=== PATIENT | male | born 1965 | race Caucasian/White ===

== ENCOUNTER → 2023-05-02 | Outpatient (CLI) | payer BC ==
[~2023-05-02] MED LIST: ASPI81TA85 PO; CLAR10TA13 PO; MOTRIN PO; MYLASS PO; NITROQUICK SL; PROT1TAB2 PO; VITA500046 PO; XANA0.25 PO
== END ==
LOC: M RAD 12:26
PROVIDERS: ATTEND Nurse Practitioner Adult Health
DX: R06.02 Shortness of breath (principal)

== ENCOUNTER → 2023-05-18 | Outpatient (CLI) | payer BC ==
[~2023-05-18] MED LIST changes: +METHACHOLINE KIT (6 VIAL.NEB PREMIX) INH ONE
== END ==
LOC: M CARPUL 10:00
PROVIDERS: ATTEND Nurse Practitioner Adult Health
DX: R06.02 Shortness of breath (principal)

== ENCOUNTER → 2023-05-31 | Outpatient (CLI) | payer BC ==
[~2023-05-31] MED LIST changes: -METHACHOLINE KIT (6 VIAL.NEB PREMIX) INH ONE
== END ==
LOC: M PLAIMG 09:20
PROVIDERS: ATTEND Nurse Practitioner Adult Health
DX: R91.8 Other nonspecific abnormal finding of lung field (principal)